=== PATIENT | female | born 1960 | race Caucasian/White ===

== ENCOUNTER 2018-03-31 06:17 | Day surgery (SDC) | payer BC, OTHER ==
[2018-03-28 09:50] VITALS: BMI 26.1
[2018-03-31] MEDS ORDERED: DEXAMETHASONE SOD PHOSPHATE 4 MG/1 ML VIAL ONE (08:24)
[2018-03-31] MEDS ORDERED: IOHEXOL 300 MG/ML INFUS..BTL IV ONE (08:30)
[2018-03-31] MEDS ORDERED: ePHEDrine SULFATE 50 MG/1 ML AMPULE ONE (08:38)
--- NOTE | 2018-03-31 08:59 | OP ---
Operative Note - Note: Operative Date: 03/31/18 Pre-Operative Diagnosis: right ureteral stone with hydronephrosis Operation: cystoscopy/right tretrograde pyelogram/right ureteroscopic laser lithotripsy/right ureteroscopic stone basketing/right ureteral stent placement Findings: mild right hydro with partially obstructing right ureteral stone measuring 8mm Post-Operative Diagnosis: Same as Pre-op Surgeon: Roge Thayer Anesthesia: General Specimens Removed: stone fragments Drains & Tubes with Location: 12/08 right ureteral stent Operative Report Dictated: Yes
[2018-03-31] MEDS ORDERED: ACETAMINOPHEN 325 MG TABLET (FP) PO PRN (09:14)
[2018-03-31] MEDS ORDERED: oxyCODONE HCL 5 MG TABLET PO PRN (09:14)
[2018-03-31] MEDS ORDERED: ONDANSETRON 4 MG/2 ML VIAL IVPUSH PRN (09:14)
[2018-03-31] MEDS ORDERED: LACTATED RINGERS SOLUTION 1,000 ML IV SCH (09:15)
[2018-03-31 11:16] VITALS: BP 140/81; PULSE 61; TEMP 97.5
--- NOTE | 2018-03-31 14:31 | OP ---
DATE OF OPERATION: 03/31/2018 PREOPERATIVE DIAGNOSIS: Right hydronephrosis with right ureteral stone. POSTOPERATIVE DIAGNOSIS: Right mid ureteral 8-mm stone with mild right hydronephrosis secondary to partially obstructing stone. PROCEDURE: Cystoscopy, right retrograde pyelogram, right ureteroscopic laser lithotripsy, right ureteroscopic stone basketing, right ureteroscopic stent placement. SURGEON: Camron Berg MD ANESTHESIA: General. DESCRIPTION OF PROCEDURE: The patient was brought in the operating room and placed in a supine position on the operating room table. Anesthesia and preoperative antibiotics were administered. The patient was then placed in a dorsal lithotomy position and prepped and draped in the usual sterile manner. A cystoscopy was performed. No evidence of stones was noted within the bladder. There was no evidence of trauma consistent with recent stone passage from the right ureter noted. There was no evidence of masses within the bladder. There was 1 to 2+ trabeculation noted. At this point, an open-ended catheter was placed into the right ureteral orifice. A retrograde pyelogram showed a filling defect in the right mid ureter. Mild right hydronephrosis with slow drainage of the right kidney. Obstruction at the level of the filling defect was noted. The patient at this point had a wire passed proximally under fluoroscopic visualization. Ureteroscopy was then performed, and an 8-mm stone was noted in the right mid ureter. Because of the size of the stone, laser lithotripsy was utilized. A Holmium laser was utilized to fragment the stone into multiple fragments of which all fragments of significant size were basketed and sent for pathologic evaluation. All fragmented stones of significance were basketed using the stone basket under ureteroscopic visualization. There were no complications noted. There was no evidence of perforation of the ureter. The patient tolerated the procedure very well. A 6-Pashto 24-cm stent was placed at the end of the case. Excellent position was noted within the renal pelvis and within the bladder. DISPOSITION: Patient to recovery room. CAMRON BERG M.D. [id number]
--- NOTE | 2018-04-01 13:43 | PATH ---
Surgical Pathology Report Patient Name: LONG LÓPEZ [facility]. Rec. #: [id number] /Age/Gender: 1960 (Age: 57) / F Account: [id number] Location: [facility] Taken: 03/31/2018 Received: 03/31/2018 Reported: 04/01/2018 Physicians: Roge Thayer Specimen(s) Received RIGHT URETERAL STONE Clinical History Right ureteral stone Final Diagnosis URETERAL STONE, RIGHT, REMOVAL: URETEROLITHIASIS. MACROSCOPIC DIAGNOSIS. Electronically Signed Rosa Cain M.D. Gross Description Received fresh labeled "right ureteral stone" is a 0.7 x 0.5 x 0.3 cm aggregate of brown-mariee, irregular to fragmented calculi in saline. The specimen is sent for chemical analysis. MLEdouardZ/03/31/2018 polly/03/31/2018
== END 2018-03-31 11:22 | disposition home or self-care (01) ==
LOC: JASU-SURG 06:17
PROVIDERS: ATTEND Urology
PROC: 0TF68ZZ Fragmentation in Right Ureter, Via Natural or Artificial Opening Endoscopic (ICD-10-PCS; principal; 2018-03-31 08:00)
PROC: 0T768DZ Dilation of Right Ureter with Intraluminal Device, Via Natural or Artificial Opening Endoscopic (ICD-10-PCS; 2018-03-31 08:00)
DX: N13.2 Hydronephrosis with renal and ureteral calculous obstruction (principal)
CPT/HCPCS: 36415; 76000-TC-FY; 82360; 88300-TC; 94760

== ENCOUNTER 2018-04-21 14:03 | Day surgery (SDC) | payer BC, OTHER ==
[2018-04-18 14:50] VITALS: BMI 25.8
[2018-04-21] MEDS ORDERED: PROPOFOL 20 ML ONE (17:54)
--- NOTE | 2018-04-21 18:19 | OP ---
Operative Note - Note: Operative Date: 04/21/18 Pre-Operative Diagnosis: Left renal stone Operation: Left ESWL Findings: 7 mm left kidney upper pole stone Post-Operative Diagnosis: Same as Pre-op Surgeon: Roge Thayer Anesthesia: Fractional Estimated Blood Loss (mls): 0
[2018-04-21 19:42] VITALS: BP 129/81; PULSE 77; TEMP 97.9
--- NOTE | 2018-04-22 10:58 | OP ---
DATE OF OPERATION: 04/21/2018 PREOPERATIVE DIAGNOSIS: Left renal stone. POSTOPERATIVE DIAGNOSIS: Left renal stone. PROCEDURE: Left extracorporeal shock wave lithotripsy. ATTENDING: Camron Berg MD ANESTHESIA: Fractional. DESCRIPTION OF OPERATION: The patient was brought into the operating room and placed in a supine position on the operating room table. Ultrasonography and fluoroscopy were performed. A 7-mm left upper pole stone was identified. At this point, the patient was given anesthesia and preoperative antibiotics. Next, 2500 impulses at 17 joules of power were administered to the stone under fluoroscopic visualization. The shock wave lithotripsy appeared successful with fragmentation of the stone noted. There were no complications noted. The disposition of the patient was to the recovery room. CAMRON BERG M.D. [id number]
== END 2018-04-21 19:50 | disposition home or self-care (01) ==
LOC: JASU-SURG 14:03
PROVIDERS: ATTEND Urology
PROC: 0TF4XZZ Fragmentation in Left Kidney Pelvis, External Approach (ICD-10-PCS; principal; 2018-04-21 17:00)
DX: N20.0 Calculus of kidney (principal)